=== PATIENT | male | born 2000 | race Caucasian/White ===

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

== ENCOUNTER 2021-01-27 19:40 | Emergency (ER) | payer BC, OTHER ==
[~2021-01-27 19:40] MED LIST changes: +NAPROSYN500 MG PO
== END 2021-01-27 23:12 | disposition home or self-care (01) ==
LOC: ER1 19:40
DX: R51.9 Headache, unspecified (principal); Z20.822 Contact with and (suspected) exposure to COVID-19; F17.290 Nicotine dependence, other tobacco product, uncomplicated
CPT/HCPCS: 99283; U0002

== ENCOUNTER 2021-06-23 04:31 | Emergency (ER) | payer BC, OTHER ==
[2021-06-23 04:57] LABS: HEMOGLOBIN 14.9 gm/dl (14.0-17.5); RED BLOOD COUNT 5.08 M/UL (4.20-5.50); WHITE BLOOD COUNT 6.9 K/UL (4.5-11.0)
[2021-06-23 05:15] LABS: BUN/CREATININE RATIO 12 (0-10)
[2021-06-23] MEDS ORDERED: MIRALAX17 GM PO (11:35)
== END 2021-06-23 11:48 | disposition home or self-care (01) ==
LOC: ER1 04:31
PROVIDERS: Nurse Practitioner; Physician Assistant
DX: K59.00 Constipation, unspecified (principal); R53.83 Other fatigue; R51.9 Headache, unspecified; F17.290 Nicotine dependence, other tobacco product, uncomplicated; Z20.822 Contact with and (suspected) exposure to COVID-19
CPT/HCPCS: 0240U; 70450; 71045; 80053; 80307; 81001; 83605; 83690; 84439; 84443; 85025; 87081; 87086; 87880; 99284; Q9967